=== PATIENT | female | born 1965 | race Caucasian/White ===

== ENCOUNTER → 2020-08-24 | Outpatient (CLI) | payer MEDICARE ==
[~2020-08-24] MED LIST: CLIMARA.; DARVOCET N; IBUPROFEN800 MG PO; PREDNISONE10 MG PO; ZITHROMAX 250M250 MG PO
== END ==
LOC: COL.RAD 13:33
DX: M47.812 Spondylosis without myelopathy or radiculopathy, cervical region (principal); M48.02 Spinal stenosis, cervical region; E04.1 Nontoxic single thyroid nodule; M05.79 Rheumatoid arthritis with rheumatoid factor of multiple sites without organ or systems involvement; R20.0 Anesthesia of skin; R20.2 Paresthesia of skin

== ENCOUNTER → 2021-02-06 | Outpatient (CLI) | payer MEDICARE | LOC: COL.RAD 13:02 | DX: E04.1 Nontoxic single thyroid nodule (principal) ==

== ENCOUNTER → 2023-08-15 | Outpatient (CLI) | payer MEDICARE, MEDICAID | LOC: MC.RAD 15:39 | DX: Z12.31 Encounter for screening mammogram for malignant neoplasm of breast (principal) ==